=== PATIENT | female | born 1985 | race Caucasian/White ===

== ENCOUNTER 2017-05-01 20:57 | Emergency (ER) | payer MEDICAID ==
[~2017-05-01] VITALS: Ht 157.5 cm; Wt 76.7 kg
[~2017-05-01 20:57] MED LIST: FERROUS SULFAT325 M2 PO; LAC PO; LEVAQUIN750 MG PO; TYLENOL EXTRA500 M2 PO
[2017-05-02 01:54] VITALS: BP 141/89
== END 2017-05-02 01:54 | disposition home or self-care (01) ==
LOC: ED 20:57
DX: S63.501A Unspecified sprain of right wrist, initial encounter (principal); M54.5 Low back pain; M25.562 Pain in left knee; W18.2XXA Fall in (into) shower or empty bathtub, initial encounter; Y93.89 Activity, other specified; Y92.89 Other specified places as the place of occurrence of the external cause; Y99.8 Other external cause status
CPT/HCPCS: J1885

== ENCOUNTER 2017-08-04 06:33 | Emergency (ER) | payer MEDICAID ==
[2017-08-04 07:40] LABS: BASOPHIL % 0.1 % (0-2); PLATELET COUNT 248 x10^3mcL (130-400)
[2017-08-04 07:42] LABS: RED CELL DISTRIBUTION WIDTH 16.9 % (11.5-14.5)
[2017-08-04 07:50] LABS: CALCIUM 9.2 mg/dL (8.5-10.1); CARBON DIOXIDE 24.2 mmol/L (21-32); CHLORIDE SERUM 103 mmol/L (98-107); CREATININE SERUM 0.8 mg/dL (0.6-1.0); GFR1 > 60 mL/min; GLUCOSE SERUM 147 mg/dL (74-106); POTASSIUM SERUM 3.6 mmol/L (3.5-5.1); SODIUM SERUM 139 mmol/L (136-145)
[2017-08-04 07:55] LABS: ALBUMIN 4.1 g/dL (3.4-5.0); ALKALINE PHOSPHATASE 89 U/L (46-116); ALT/SGPT 31 U/L (14-59); AST/SGOT 18 U/L (15-37); LIPASE 156 IU/L (73-393)
[2017-08-04 07:58] LABS: TOTAL PROTEIN, SERUM 9.5 g/dL (6.4-8.2)
[2017-08-04 08:49] VITALS: BP 145/60
== END 2017-08-04 08:49 | disposition home or self-care (01) ==
LOC: ED 06:33
PROVIDERS: Emergency Medicine
DX: R10.84 Generalized abdominal pain (principal); E86.0 Dehydration; R03.0 Elevated blood-pressure reading, without diagnosis of hypertension; R19.7 Diarrhea, unspecified; J45.909 Unspecified asthma, uncomplicated; M06.9 Rheumatoid arthritis, unspecified; R11.2 Nausea with vomiting, unspecified; Z90.49 Acquired absence of other specified parts of digestive tract
CPT/HCPCS: J1885; J2405; J7030

== ENCOUNTER 2017-12-07 08:46 | Emergency (ER) | payer MEDICAID ==
[~2017-12-07] VITALS: Ht 157.5 cm; Wt 75.3 kg
[2017-12-07 08:53] VITALS: Ht 157.5 cm; Wt 75.3 kg
[2017-12-07 10:58] VITALS: BP 140/61
== END 2017-12-07 10:58 | disposition home or self-care (01) ==
LOC: ED 08:46
DX: J20.9 Acute bronchitis, unspecified (principal); J45.20 Mild intermittent asthma, uncomplicated; M06.9 Rheumatoid arthritis, unspecified; Z86.2 Personal history of diseases of the blood and blood-forming organs and certain disorders involving the immune mechanism; Z90.49 Acquired absence of other specified parts of digestive tract
CPT/HCPCS: J1885

== ENCOUNTER 2019-09-25 09:30 | Emergency (ER) | payer MEDICAID ==
[~2019-09-25] VITALS: Ht 157.5 cm; Wt 75.9 kg
[2019-09-25 09:46] VITALS: Ht 157.5 cm; Wt 75.9 kg
[2019-09-25 13:02] VITALS: BP 118/77
== END 2019-09-25 13:02 | disposition home or self-care (01) ==
LOC: ED 09:30
DX: J11.1 Influenza due to unidentified influenza virus with other respiratory manifestations (principal); R11.10 Vomiting, unspecified; J45.909 Unspecified asthma, uncomplicated; E11.9 Type 2 diabetes mellitus without complications; M06.9 Rheumatoid arthritis, unspecified; Z90.49 Acquired absence of other specified parts of digestive tract; Z86.2 Personal history of diseases of the blood and blood-forming organs and certain disorders involving the immune mechanism
CPT/HCPCS: 87804; J1100; J1885; Q0162